=== PATIENT | female | born 1935 | race Caucasian/White ===

== ENCOUNTER 2022-05-02 07:27 | Day surgery (SDC) | payer MEDICARE, SELFPAY ==
[2022-04-25 08:54] VITALS: BMI 25.8
--- NOTE | 2022-05-01 10:44 | WPDANESEPPF ---
Anes - Initial Pre Proc Eval Procedure: Operation Date: 05/02/22 09:00 Proposed Procedures p Cataract Extraction with Lens Implant-Left Eye - Jerson Castillo MD Date/Time: 05/01/22 10:44 Surgeon: Jerson Castillo MD Pre Op Diagnosis: Cataract Left Eye Patient Data Age: 86 Gender: F Height: 1.55 m Weight: 62 kg Allergies Allergy/AdvReac Type Severity Reaction Status Date / Time No Known Allergies Allergy Verified 05/02/22 08:19 Home Medications Medication Instructions Recorded Confirmed Type losartan 100 mg tablet 100 mg PO DAILY #90 tabs 05/08/21 04/25/22 Rx amlodipine 5 mg tablet 5 mg PO DAILY 09/21/21 04/25/22 History aspirin 325 mg tablet 81.25 mg PO DAILY 09/23/21 04/25/22 History miyvzap-msegrpdtmbzuh-mzpkpgkg 250 1 tablet PO Q4-6H PRN pain 09/23/21 04/25/22 History mg-250 mg-65 mg tablet (Excedrin Extra Strength) isosorbide mononitrate 30 mg 30 mg PO DAILY #90 tabs 10/20/21 04/25/22 Rx tablet,extended release 24 hr hydrochlorothiazide 25 mg tablet 25 mg PO DAILY #90 tabs 11/13/21 04/25/22 Rx metformin 500 mg tablet,extended 1,500 mg PO DAILY #360 tabs 11/22/21 04/25/22 Rx release 24 hr minoxidil 10 mg tablet 10 mg PO DAILY #90 tabs 11/22/21 04/25/22 Rx atorvastatin 40 mg tablet 40 mg PO DAILY #90 tabs 12/11/21 04/25/22 Rx atenolol 50 mg tablet 100 mg PO DAILY #180 tabs 01/11/22 05/02/22 Rx furosemide 20 mg tablet See Rx Instructions PO QAM PRN 02/08/22 04/25/22 Rx edema #180 tabs potassium chloride 10 mEq 10 meq PO DAILY #90 tabs 03/23/22 04/25/22 Rx tablet,extended release blood sugar diagnostic (Contour #50 ea 03/28/22 04/02/22 Rx Test Strips) blood sugar diagnostic (OneTouch #100 ea 03/30/22 04/02/22 Rx Verio test strips) blood-glucose meter (OneTouch #1 ea 03/30/22 04/02/22 Rx Verio Reflect Meter) lancets 33 gauge (Lisa Rascon #100 ea 03/30/22 04/02/22 Rx Lancets) Patient hx anesthesia problems: none Family hx anesthesia problems: none Results Review: All pre-operative results and documents have been reviewed as part of the pre-operative evaluation. [facility] Past Medical History Medical History (Updated 05/02/22 @ 08:47 by Merrill Kc DO) Aortic atherosclerosis Atherosclerosis of coronary artery of [place] heart with stable angina pectoris Chronic kidney disease, stage 3b Chronic systolic (congestive) heart failure Ischemic cardiomyopathy Old myocardial infarction (2016) 2016 Personal history of transient ischemic attack (TIA), and cerebral infarction without residual deficits (~2006) Pulmonary hypertension, unspecified Ureteral calculus, left (2004) Surgical History Surgical History History of arthroscopy of left knee (2011) History of arthroscopy of right knee (2007) Family History Family History Sibling Diabetes mellitus Other Cerebrovascular accident Hypertension Social History Social History (Updated 09/22/21 @ 09:08 by Korin Stewart MA) Smoking status: Never smoker Second hand tobacco smoke exposure: No Alcohol intake: never Substance use: never Substance use type: does not use Living arrangements: alone Occupation/Education: retired Gender identity (if verbalized by the patient): Female Sexual Orientation (if Verbalized by the Patient): Straight or Heterosexual Spiritual care concerns: No Agree to blood products: Yes Anes - Eval Final PreProcedure Day of Procedure 05/01/22 10:44 Patient weight: overweight Heart: regular rate and rhythm Lungs: clear to auscultation and normal air movement Airway: Mallampati scale class II Neurological: alert and oriented Last oral intake: >/= 8 hours ASA classification: IV Emergent: no Anesthetic plan: proceed Anesthesia type and monitoring: monitored anesthesia care and standard monitoring Results Review: All pre-operati
[2022-05-02 07:55] VITALS: BP 134/75; PULSE 99; RESP 20; TEMP 36; O2SAT 98
[2022-05-02 07:59] LABS: Glucose Point of Care 139 mg/dl (65-105)
[2022-05-02] MEDS: OFLOXACIN 0.3% OPHTH SOLN 5 ML BTL 1 DROP AFFCTD EYE (08:34)
[2022-05-02] MEDS: TETRACAINE HCL 0.5% OPHTH SOLN 4 ML BTL 1 DROP AFFCTD EYE ×3 (08:34→08:44)
--- NOTE | 2022-05-02 08:57 | WPDHPUPDATE1 ---
History and Physical Update Update Date/Time: 05/02/22 08:57 History and Physical has been reviewed, including an updated exam of the patient. There are NO changes in the patient's condition. Risks, benefits, and alternatives have been discussed and questions answered. Patient agrees to proceed with procedure.
[2022-05-02] MEDS: LIDOCAINE HCL 2% JELLY 5 ML TUBE 1 APPLIC AFFCTD EYE (09:30)
[2022-05-02] MEDS: LIDOCAINE HCL 1% PF INJ 5 ML VIAL 1 ML INTRAOCULA (09:41)
[2022-05-02] MEDS: NEOMYCIN/POLYMYXIN/DEXAMETH OP OINT 3.5 GM TUBE 1 APPLIC AFFCTD EYE (09:42)
[2022-05-02] MEDS: HOME MEDICATION 1 EACH AFFCTD EYE (09:43)
[2022-05-02 10:04] VITALS: BP 143/63; PULSE 56; RESP 16; O2SAT 98
[2022-05-02] MEDS: acetaZOLAMIDE TAB 250 MG TABLET PO (10:20)
--- NOTE | 2022-05-02 12:04 | WPDANESPN ---
Anes - Prog Note Post-Op Date/Time: 05/02/22 12:04 Cardiovascular status: normal Respiratory status: normal Airway patency: baseline Mental status: baseline Post-Op hydration status: normal Vital Signs: Last Vital Signs Temp 36.0 C L 05/02/22 07:55 Pulse 56 L 05/02/22 10:04 Resp 16 05/02/22 10:04 BP 143/63 H 05/02/22 10:04 Pulse Ox 98 05/02/22 10:04 O2 Del Method Room Air 05/02/22 10:04 Pain Score (VAS): 0 05/02/22 07:57 POC Capillary Glucose 139 H Post-procedural complaints: none Patient Feedback: Patient satisfied with anesthetic care. Other Findings: Patient vital signs back to baseline. Patient denies nausea and vomiting. Patient's pain under control. Patient OK for discharge.
--- NOTE | 2022-05-02 12:29 | W.PM.PROC2 ---
Procedure Note - Detailed Date of Procedure 05/02/22 Pre-op Diagnosis 1) Cataract Left Eye 2) Miotic pupillary cyst Left eye Post-op Diagnosis Same Procedure Performed Complex Cataract Extraction (by Phacoemulsification) and lntraocular Lens Implant Surgeon Jerson Castillo MD Anesthesia MAC Description of Procedure The eye was anesthetized with topical 0.75% bupivacaine. After intravenous sedation and placement of monitors, the patient was prepped and draped in the usual sterile manner. A lid speculum was placed. A paracentesis was made, and preservative free 1% lidocaine was instilled in the anterior chamber. The anterior chamber was then filled with Viscoat viscoelastic and a Malyugin ring was placed. A remi keratome was used to create the wound. Continuous tear anterior capsulotomy was performed. The lens was hydro dissected before being removed with phacoemulsification. The remaining lenticular cortex was removed with aspiration. The capsular bag was polished and filled with viscoelastic material. An intraocular lens was chosen, inspected, irrigated and placed within the capsular bag where it was seen to be centered and stable. The ring was removed and viscoelastic material was aspirated. The wound was closed and found to be watertight. Ciloxan drops were placed in the eye. The speculum was removed. A Sahni shield was applied. The patient tolerated the procedure well and left the operating room in satisfactory condition. Implants See chart Complications None Condition Stable Disposition Same day
== END 2022-05-02 10:37 | disposition home or self-care (01) ==
PROVIDERS: PCP Family Medicine Adolescent Medicine; Visit Provider Student in an Organized Health Care Education/Training Program
PROC: (CPT 66983; principal; 2022-05-02 09:00)
DX: H25.12 Age-related nuclear cataract, left eye (principal)
CPT/HCPCS: 66982

== ENCOUNTER 2023-09-13 09:19 | Emergency (ER) | payer MEDICARE, SELFPAY ==
--- NOTE | ~2023-09-13 | CT_ITS ---
EXAMINATION: CT cervical spine wo con DATE: 09/13/2023 12:07 INDICATION: Neck pain. TECHNIQUE: Computed tomography (CT) of the cervical spine was performed without intravenous contrast. Automated exposure control and iterative reconstruction technique were employed. The dose-length pro duct was 203.62 mGy-cm. COMPARISON: None FINDINGS: There is 3 degrees levocurvature of cervical spine. There is mild kyphosis of lower cervica l spine. Vertebral body heights are normal. There is mildly decreased disc height at C3-C4 and C4-C5 and severely decreased disc height at C5-C6 and C6-C7. The following disc levels are specifically dis cussed: C2-C3: There is mild left uncovertebral joint osteoarthritis. There is mild right and severe left fac et joint osteoarthritis. There is mild left neural foraminal stenosis. There is no central canal sten osis. C3-C4: There is mild right and moderate left uncovertebral joint osteoarthritis. There is severe bila teral facet joint osteoarthritis. There is mild left neural foraminal stenosis. There is no central c anal stenosis. C4-C5: There is mild left uncovertebral joint osteoarthritis. There is mild right and severe left fac et joint osteoarthritis. There is mild left neural foraminal stenosis. There is no central canal sten osis. C5-C6: There is severe bilateral uncovertebral joint osteoarthritis. There is moderate right and margot re left facet joint osteoarthritis. There is mild bilateral neural foraminal stenosis. There is mild central canal stenosis. C6-C7: There is severe bilateral uncovertebral joint osteoarthritis. There is mild right and moderate left facet joint osteoarthritis. There is moderate right and mild left neural foraminal stenosis. Th ere is mild central canal stenosis. C7-T1: There is no uncovertebral joint osteoarthritis. There is mild bilateral facet joint osteoarthr itis. There is no neural foraminal stenosis. There is no central canal stenosis. IMPRESSION: 1. Severe cervical spondylosis. Reviewed, dictated and finalized at location A.
[2023-09-13 09:23] VITALS: BP 183/72; PULSE 57; RESP 18; TEMP 36.4; O2SAT 97
--- NOTE | 2023-09-13 12:00 | ED.GENADULT ---
HPI - General Adult General Chief complaint: Neck Pain/Injury Stated complaint: neck pain Time Seen by Provider: 09/13/23 11:35 History of Present Illness HPI narrative: Patient 88-year-old female who presents emergency department with chief complaint of neck pain. Patient reports last several days she has had pain in her neck the patient reports no trauma reports no fever no chills patient denies numbness or tingling in her arms or legs denies bowel or bladder symptoms denies motor weakness. Related Data Home Medications Medication Instructions Recorded Confirmed aspirin 325 mg tablet 81.25 mg PO DAILY 09/23/21 07/15/23 hyaikfe-vjimnvtxqzpga-yvzhjxtn 250 1 tablet PO Q4-6H PRN pain 09/23/21 07/15/23 mg-250 mg-65 mg tablet (Excedrin Extra Strength) Allergies Allergy/AdvReac Type Severity Reaction Status Date / Time ipratropium AdvReac Severe Nausea Verified 09/13/23 10:48 Review of Systems Review of Systems: A 10 system review of systems was completed on the patient and is negative except for what is stated in the HPI. Nursing and ancillary documentation was reviewed. [facility] Past Medical History Medical History Aortic atherosclerosis Atherosclerosis of coronary artery of [place] heart with stable angina pectoris Chronic kidney disease, stage 3b Chronic systolic (congestive) heart failure Ischemic cardiomyopathy Old myocardial infarction (2016) 2016 Personal history of transient ischemic attack (TIA), and cerebral infarction without residual deficits (~2006) Pulmonary hypertension, unspecified Ureteral calculus, left (2004) Surgical History Surgical History History of arthroscopy of left knee (2011) History of arthroscopy of right knee (2007) Family History Family History Sibling Diabetes mellitus Other Cerebrovascular accident Hypertension Social History Social History Smoking status: Never smoker Second hand tobacco smoke exposure: No Alcohol intake: never Substance use: never Substance use type: does not use Living arrangements: alone Occupation/Education: retired Gender identity (if verbalized by the patient): Female Sexual Orientation (if Verbalized by the Patient): Straight or Heterosexual Spiritual care concerns: No Agree to blood products: Yes Exam Narrative: GENERAL: Well-appearing, well-nourished, and in no acute distress. HEAD: Normocephalic, atraumatic. EYES: PERRLA and EOMI. ENT: Nares clear, no rhinorrhea or epistaxis. Mucous membranes moist. NECK: Supple. Mild tenderness to palpation in midline cervical spine no step-off noted CHEST: Clear to auscultation. No respiratory distress. HEART: Regular rate and rhythm. No murmur heard. Normal peripheral pulses. ABDOMEN: Soft, nontender, nondistended, normal active bowel sounds. EXTREMITIES: Normal range of motion. No edema. SKIN: Warm, dry, no rash. NEURO: No focal deficits. Alert and oriented x3. Good strength and sensory in all extremities PSYCH: Normal mood and affect. Course Vital Signs Vital signs: Vital Signs Temperature 36.4 C 09/13/23 09:23 Pulse Rate 57 L 09/13/23 09:23 Respiratory Rate 18 09/13/23 09:23 Blood Pressure 183/72 H 09/13/23 09:23 Pulse Oximetry 97 09/13/23 09:23 Temperature 36.4 C 09/13/23 09:23 Pulse Rate 57 L 09/13/23 09:23 Respiratory Rate 18 09/13/23 09:23 Blood Pressure 183/72 H 09/13/23 09:23 Pulse Oximetry 97 09/13/23 09:23 Medical Decision Making MDM Narrative Medical decision making narrative: Differential diagnosis includes arthritis, fracture, radiculopathy Imaging studies were obtained on the patient which showed significant arthritis Patient was given Toradol a
[2023-09-13] MEDS: TIZANIDINE HCL 2 MG TABLET PO (12:16)
[2023-09-13] MEDS: KETOROLAC 15 MG/ML VIAL (*BKC) IM (12:17)
== END 2023-09-13 13:10 | disposition home or self-care (01) ==
PROVIDERS: Emergency Provider Emergency Medicine; PCP Family Medicine Adolescent Medicine
DX: M47.812 Spondylosis without myelopathy or radiculopathy, cervical region (principal); N18.32 Chronic kidney disease, stage 3b; I70.0 Atherosclerosis of aorta; I25.118 Atherosclerotic heart disease of native coronary artery with other forms of angina pectoris; I50.22 Chronic systolic (congestive) heart failure; I25.5 Ischemic cardiomyopathy; I25.2 Old myocardial infarction; I27.20 Pulmonary hypertension, unspecified; Z86.73 Personal history of transient ischemic attack (TIA), and cerebral infarction without residual deficits; Z87.442 Personal history of urinary calculi
CPT/HCPCS: 72125; 96372; 99284; A9270; J1885

== ENCOUNTER 2023-10-14 13:36 | Outpatient (CLI) | payer MEDICARE, SELFPAY | END 2023-10-14 13:37 | disposition home or self-care (01) | LOC: ANHAUDASC 13:38 | PROVIDERS: PCP Family Medicine Adolescent Medicine; Visit Provider Otolaryngology | DX: H90.3 Sensorineural hearing loss, bilateral (principal); H93.13 Tinnitus, bilateral; H35.30 Unspecified macular degeneration; K21.9 Gastro-esophageal reflux disease without esophagitis | CPT/HCPCS: 92557; 92567 ==